=== PATIENT | female | born 1960 | race Caucasian/White ===

== ENCOUNTER → 2016-11-04 | Outpatient (CLI) | payer MEDICAID ==
[~2016-11-04] MED LIST: EFFEXOR XR150 MG PO; LEVOTHROID (S100 MCG PO; PROTONIX40 MG PO; TOPROL XL 5050 MG PO; WELLBUTRIN XL300 M1 PO
== END | disposition disaster alternative care site (69) ==
LOC: GOPD 10-31
DX: R10.30 Lower abdominal pain, unspecified (principal); K86.89 Other specified diseases of pancreas; J98.11 Atelectasis; J98.4 Other disorders of lung; Z90.49 Acquired absence of other specified parts of digestive tract
CPT/HCPCS: J2001; J7030; Q9967